=== PATIENT | female | born 1930 | race Caucasian/White ===

== ENCOUNTER 2017-10-05 10:46 | Emergency (ER) | payer MEDICARE ==
[~2017-10-05] VITALS: Ht 162.6 cm; Wt 95.5 kg
[~2017-10-05 10:46] MED LIST: AMOX1TAB61 PO; ASPI325T17 PO; CEFD300C37 PO; CYAN500L2 PO; DOCU-131 PO; FURO20TA3 PO; HYDR-3237 PO; HYPR10DR EACHEYE; INSU100I13 SQ; INSU100I13 SQ-INSULIN; LEVO50TA5 PO; LISI40TA PO; LOVA40TA2 PO; METF10002 PO; NITR100C PO; NITR50CA PO; ONDA4TAB10 PO; VITA1TAB61 PO
[2017-10-05] MEDS ORDERED: DIAZEPAM 5 MG TABLET PO ONE (11:30)
[2017-10-05] MEDS ORDERED: KETOROLAC 30 MG/1 ML IM ONE (11:30)
[2017-10-05] MEDS ORDERED: DIAZEPAM 5 MG TABLET ONE (11:33)
[2017-10-05] MEDS ORDERED: KETOROLAC 30 MG/1 ML ONE (11:33)
[2017-10-05 15:06] VITALS: BP 156/66
== END 2017-10-05 15:10 | disposition home or self-care (01) ==
LOC: ED 11:43
DX: S16.1XXA Strain of muscle, fascia and tendon at neck level, initial encounter (principal); S39.012A Strain of muscle, fascia and tendon of lower back, initial encounter; M48.061 Spinal stenosis, lumbar region without neurogenic claudication; E05.90 Thyrotoxicosis, unspecified without thyrotoxic crisis or storm; E04.1 Nontoxic single thyroid nodule; E11.9 Type 2 diabetes mellitus without complications; E78.5 Hyperlipidemia, unspecified; I10 Essential (primary) hypertension; Z79.4 Long term (current) use of insulin; Z90.49 Acquired absence of other specified parts of digestive tract; X58.XXXA Exposure to other specified factors, initial encounter; Y93.89 Activity, other specified; Y92.89 Other specified places as the place of occurrence of the external cause; Y99.8 Other external cause status
CPT/HCPCS: 72125; 72131; 93005; 96372; 99284; J1885

== ENCOUNTER 2018-12-12 11:04 | Inpatient (IN) | payer MEDICARE ==
[~2018-12-12] VITALS: Ht 165.1 cm; Wt 89.5 kg
[~2018-12-12 11:04] MED LIST changes: +AMIO400T5 PO; +AMOX-367 PO; +APIX5TAB PO; +INSU100V8 SQ; +LEVO25TA2 PO; +LEVO50TA PO; +fish oil PO
[2018-12-12] MEDS ORDERED: ONDANSETRON 2MG/ML, 2ML ONE (11:48)
[2018-12-12 11:58] LABS: BASOPHILS # (AUTO) 0.01 x10^3/uL (0-0.1); BASOPHILS % (AUTO) 0 % (0-1); EOSINOPHILS # (AUTO) 0.27 x10^3/uL (0-0.4); EOSINOPHILS % (AUTO) 2 % (1-7); LYMPHOCYTES # (AUTO) 0.83 x10^3/uL (1-3.4); LYMPHOCYTES % (AUTO) 7 % (22-44); MD NO; MEAN CORPUSCULAR HEMOGLOBIN 29.3 pg (27.0-34.8); MEAN CORPUSCULAR HGB CONC 33.4 g/dL (32.4-35.8); MEAN CORPUSCULAR VOLUME 87.7 fL (80-100); MEAN PLATELET VOLUME 8.9 fL (7.4-10.4); MONOCYTES # (AUTO) 0.54 x10^3/uL (0.2-0.8); MONOCYTES % (AUTO) 5 % (2-9); NEUTROPHILS # (AUTO) 10.16 x10^3/uL (1.8-6.8); NEUTROPHILS % (AUTO) 86 % (42-75); PLATELET COUNT 222 x10^3/uL (130-400); RED BLOOD COUNT 4.87 x10^6/uL (3.82-5.3); RED CELL DISTRIBUTION WIDTH 15.5 % (9.6-15.2)
--- NOTE | 2018-12-12 11:58 | NUR ---
PT PLACED ON HEART MONITOR, BP CUFF, PULSE OX. VSS AT THIS TIME. PT REPORTS OF N/V/D SINCE YESTERDAY. FEELS NAUSEA AND LIGHTHEADED/WEAK AT THIS TIME. NO DIARRHEA TODAY. PT REPORTS RECENT ANTIBIOTIC USE FOR "VAGINAL INFECTION". IV PLACED, LABS DRAWN WITH START, IVF BOLUS AND ZOFRAN GIVEN PER ERP ORDER. PT TO IMAGING. FAMILY AT BS, CALL LIGHT WITHIN REACH, WARM BLANKET PROVIDED. PT WISHES TO STAY IN OWN [place] AND [place].
[2018-12-12] MEDS ORDERED: ONDANSETRON 2MG/ML, 2ML IVPush ONE (12:00)
[2018-12-12] MEDS ORDERED: SODIUM CHLORIDE 0.9% 1,000ML IVBOLUS ONE (12:00)
[2018-12-12] MEDS ORDERED: SODIUM CHLORIDE FLUSH 10ML SYR IVF ONE (12:00)
[2018-12-12 12:14] LABS: ALANINE AMINOTRANSFERASE 26 U/L (12-78); ALBUMIN 3.1 g/dL (3.4-5.0); ANION GAP 9 mmol/L (5-15); CALCIUM 8.9 mg/dL (8.5-10.1); CHLORIDE 102 mmol/L (98-107); CREATININE 1.31 mg/dL (0.55-1.02)
[2018-12-12 12:19] LABS: ALKALINE PHOSPHATASE 73 U/L (45-117); BILIRUBIN,TOTAL 1.1 mg/dL (0.2-1.0); TOTAL PROTEIN 6.3 g/dL (6.4-8.2)
[2018-12-12 12:22] LABS: TROPONIN I 0.119 ng/mL (0.000-0.045)
[2018-12-12 12:25] LABS: ACETONE, SERUM Trace (10mg/dL) mg/dL (Negative)
[2018-12-12] MEDS ORDERED: ASPIRIN 81 MG TABLET CHEW ONE (12:51)
--- NOTE | 2018-12-12 12:54 | NUR ---
PT DESAT TO 80% WHILE ASLEEP, OXYGEN PLACED AT 3LITERS VIA NC WITH IMPROVEMENT TO 100% WHILE AWAKE. PT UPDATED ON POC, ASPIRIN GIVEN PO PER ERP ORDER. PT DENIES PAIN OR NAUSEA AT THIS TIME. VSS/UPDATED IN COMPUTER. BSC COMMODE IN PLACE WITH HAT, PT AWARE OF NEED FOR UA AND STOOL SPECIMEN. PT STATES UNABLE TO PROVIDE AT THIS TIME. CALL LIGHT WITHIN REACH.
[2018-12-12] MEDS ORDERED: ASPIRIN 81 MG TABLET CHEW PO ONE (13:00)
[2018-12-12] MEDS ORDERED: EMPA10TA PO (13:14)
[2018-12-12] MEDS ORDERED: NITR100C6 PO (13:14)
[2018-12-12] MEDS ORDERED: AMIO100T4 PO (13:14)
--- NOTE | 2018-12-12 13:22 | NUR ---
SMALL AMOUNT OF YELLOW MUCOUS STOOL SENT TO LAB. MODERATE AMOUNT IN COMMODE BUT MAJORITY MIXED WITH URINE MAKING UNABLE TO SEND UA. ADMITTING FOR DR DEWITT IN TO SEE PT.
--- NOTE | 2018-12-12 13:36 | NUR ---
REPORT GIVEN TO FLOOR RN. AWAITING TRANSPORT TO FLOOR.
[2018-12-12] MEDS ORDERED: ACETAMINOPHEN 325 MG TABLET PO PRN (14:00)
[2018-12-12] MEDS ORDERED: PROMETHAZINE 25 MG/ML, 1ML IM PRN (14:00)
[2018-12-12] MEDS ORDERED: ONDANSETRON ODT 4 MG PO PRN (14:00)
[2018-12-12] MEDS ORDERED: ONDANSETRON 2MG/ML, 2ML IVPush PRN (14:00)
[2018-12-12] MEDS ORDERED: hydrALAzine 20 MG/ML, 1ML IVPush PRN (14:00)
[2018-12-12 14:07] LABS: CLOSTRIDIUM DIFFICILE ANTIGEN NEGATIVE; CLOSTRIDIUM DIFFICILE TOXIN NEGATIVE (Negative)
[2018-12-12] MEDS ORDERED: FOSFOMYCIN 3 GM PACKET PO ONE (14:30)
[2018-12-12] MEDS: SODIUM CHLORIDE 0.9% 1,000 ML IV SCH (15:12)
[2018-12-12] MEDS: INSULIN REGULAR 100 UNITS/ML, 3ML VIAL SQ-INSULIN SCH ×2 (16:00→23:15)
[2018-12-12 18:04] LABS: TROPONIN I 0.086 ng/mL (0.000-0.045)
[2018-12-12 19:40] VITALS: BP 132/62
[2018-12-12 20:07] LABS: MICROSCOPIC AUTO
[2018-12-12 20:10] LABS: CULTURE INDICATED? YES
[2018-12-12] MEDS: LOVASTATIN 40 MG TABLET PO SCH (22:41)
[2018-12-12] MEDS: APIXABAN 5 MG TABLET PO SCH (22:41)
[2018-12-13 01:05] VITALS: BP 111/56
[2018-12-13 02:26] LABS: BASOPHILS # (AUTO) 0.02 x10^3/uL (0-0.1); BASOPHILS % (AUTO) 0 % (0-1); EOSINOPHILS # (AUTO) 0.31 x10^3/uL (0-0.4); EOSINOPHILS % (AUTO) 3 % (1-7); LYMPHOCYTES # (AUTO) 0.64 x10^3/uL (1-3.4); LYMPHOCYTES % (AUTO) 7 % (22-44); MD NO; MEAN CORPUSCULAR HGB CONC 33.2 g/dL (32.4-35.8); MEAN CORPUSCULAR VOLUME 87.4 fL (80-100); MEAN PLATELET VOLUME 8.7 fL (7.4-10.4); MONOCYTES # (AUTO) 0.51 x10^3/uL (0.2-0.8); MONOCYTES % (AUTO) 5 % (2-9); NEUTROPHILS # (AUTO) 8.19 x10^3/uL (1.8-6.8); NEUTROPHILS % (AUTO) 85 % (42-75); PLATELET COUNT 197 x10^3/uL (130-400); RED BLOOD COUNT 3.74 x10^6/uL (3.82-5.3); RED CELL DISTRIBUTION WIDTH 15.9 % (9.6-15.2)
[2018-12-13 02:38] LABS: ANION GAP 7 mmol/L (5-15); CALCIUM 7.5 mg/dL (8.5-10.1); CHLORIDE 109 mmol/L (98-107)
[2018-12-13] MEDS: SODIUM CHLORIDE 0.9% 1,000 ML IV SCH ×4 (02:42→20:51)
[2018-12-13 02:43] LABS: TROPONIN I 0.112 ng/mL (0.000-0.045)
[2018-12-13] MEDS: LEVOTHYROXINE 75 MCG TABLET PO SCH (05:35)
[2018-12-13] MEDS ORDERED: POTASSIUM CHLORIDE 20 MEQ TAB.ER.PRT PO ONE (06:30)
[2018-12-13] MEDS ORDERED: MAGNESIUM CARBONATE 54 MG/5 ML ORAL SOL PO ONE (06:30)
[2018-12-13 07:13] VITALS: BP 107/62
[2018-12-13 07:29] LABS: TROPONIN I 0.115 ng/mL (0.000-0.045)
[2018-12-13] MEDS: INSULIN REGULAR 100 UNITS/ML, 3ML VIAL SQ-INSULIN SCH ×4 (08:48→20:50)
[2018-12-13] MEDS: LISINOPRIL 20 MG TABLET PO SCH (08:49)
[2018-12-13] MEDS: APIXABAN 5 MG TABLET PO SCH ×2 (08:49→20:50)
[2018-12-13] MEDS: CALCIUM CARBONATE 500 MG TABLET PO SCH ×2 (08:50→20:50)
[2018-12-13] MEDS: AMIODARONE 200 MG TABLET PO SCH (08:50)
[2018-12-13 12:46] VITALS: BP 105/61
[2018-12-13] MEDS ORDERED: SODIUM CHLORIDE 0.9% 1,000 ML IV SCH (13:44)
[2018-12-13 20:05] VITALS: BP 145/68
[2018-12-13] MEDS: LOVASTATIN 40 MG TABLET PO SCH (20:50)
[2018-12-14 00:50] VITALS: BP 153/80
[2018-12-14 04:55] LABS: ANION GAP 6 mmol/L (5-15); CALCIUM 7.7 mg/dL (8.5-10.1); CHLORIDE 114 mmol/L (98-107); CREATININE 1.13 mg/dL (0.55-1.02)
[2018-12-14] MEDS: LEVOTHYROXINE 75 MCG TABLET PO SCH (05:22)
[2018-12-14] MEDS: SODIUM CHLORIDE 0.9% 1,000 ML IV SCH (05:23)
[2018-12-14 07:38] VITALS: BP 164/73
[2018-12-14] MEDS: APIXABAN 5 MG TABLET PO SCH (08:54)
[2018-12-14] MEDS: CALCIUM CARBONATE 500 MG TABLET PO SCH (08:55)
[2018-12-14] MEDS: LISINOPRIL 20 MG TABLET PO SCH (08:55)
[2018-12-14] MEDS: AMIODARONE 200 MG TABLET PO SCH (08:56)
[2018-12-14] MEDS: INSULIN REGULAR 100 UNITS/ML, 3ML VIAL SQ-INSULIN SCH ×2 (08:56→11:21)
[2018-12-14 13:19] VITALS: BP 173/79
[2018-12-14] MEDS ORDERED: AMOXICILLIN/CLAV 875-125MG TABLET PO SCH (13:30)
[2018-12-14] MEDS ORDERED: FLUCONAZOLE 100 MG TABLET PO ONE (13:30)
[2018-12-14] MEDS ORDERED: NYSTATIN CRM 15GM TP PRN (13:30)
[2018-12-14] MEDS ORDERED: NYST15CR33 TP (13:34)
[2018-12-14] MEDS ORDERED: AMOX1TAB12 PO (13:34)
[2018-12-14] MEDS ORDERED: FLUCONAZOLE 50 MG TABLET PO ONE (14:00)
== END 2018-12-14 16:35 | disposition home or self-care (01) | DRG 280 ==
LOC: ED 13:00 → EDIP 13:47 → 5SO 13:52 → DCLOUNGE 12-14 16:20
PROVIDERS: ADMIT Family Medicine; ATTEND Family Medicine
DX: I21.4 Non-ST elevation (NSTEMI) myocardial infarction (principal); N17.0 Acute kidney failure with tubular necrosis; I51.81 Takotsubo syndrome; N39.0 Urinary tract infection, site not specified; A08.4 Viral intestinal infection, unspecified; I48.0 Paroxysmal atrial fibrillation; I10 Essential (primary) hypertension; B37.3 Candidiasis of vulva and vagina; B96.20 Unspecified Escherichia coli [E. coli] as the cause of diseases classified elsewhere; B96.1 Klebsiella pneumoniae [K. pneumoniae] as the cause of diseases classified elsewhere; I95.9 Hypotension, unspecified; E78.5 Hyperlipidemia, unspecified; E11.9 Type 2 diabetes mellitus without complications; E86.0 Dehydration; Z82.49 Family history of ischemic heart disease and other diseases of the circulatory system; Z87.01 Personal history of pneumonia (recurrent); Z79.01 Long term (current) use of anticoagulants; Z80.8 Family history of malignant neoplasm of other organs or systems; Z85.820 Personal history of malignant melanoma of skin; Z86.73 Personal history of transient ischemic attack (TIA), and cerebral infarction without residual deficits; Z87.891 Personal history of nicotine dependence
CPT/HCPCS: 36415; 74022; 80048; 80053; 81001; 82010; 82800; 82962; 83735; 84443; 84484; 85025; 87086; 87324; 89055; 93005; 93306; 96361; 96374; 99285; G0378; J1815; J2405; J7030

== ENCOUNTER 2019-01-27 13:03 | Emergency (ER) | payer MEDICARE ==
[~2019-01-27 13:03] MED LIST changes: +AMIO100T4 PO; +AMOX1TAB12 PO; +EMPA10TA PO; +NITR100C6 PO; +NYST15CR33 TP
[2019-01-27 14:00] LABS: BASOPHILS # (AUTO) 0.04 x10^3/uL (0-0.1); BASOPHILS % (AUTO) 0 % (0-1); EOSINOPHILS # (AUTO) 0.11 x10^3/uL (0-0.4); EOSINOPHILS % (AUTO) 1 % (1-7); LYMPHOCYTES # (AUTO) 1.33 x10^3/uL (1-3.4); LYMPHOCYTES % (AUTO) 15 % (22-44); MD NO; MEAN CORPUSCULAR HEMOGLOBIN 28.6 pg (27.0-34.8); MEAN CORPUSCULAR HGB CONC 33.4 g/dL (32.4-35.8); MEAN CORPUSCULAR VOLUME 85.7 fL (80-100); MEAN PLATELET VOLUME 9.7 fL (7.4-10.4); MONOCYTES # (AUTO) 0.45 x10^3/uL (0.2-0.8); MONOCYTES % (AUTO) 5 % (2-9); NEUTROPHILS % (AUTO) 79 % (42-75); PLATELET COUNT 314 x10^3/uL (130-400); RED BLOOD COUNT 4.79 x10^6/uL (3.82-5.3); RED CELL DISTRIBUTION WIDTH 16.8 % (9.6-15.2)
[2019-01-27 14:08] LABS: CHLORIDE 102 mmol/L (98-107)
[2019-01-27 14:21] LABS: ALANINE AMINOTRANSFERASE 37 U/L (12-78); ALBUMIN 3.1 g/dL (3.4-5.0); ALKALINE PHOSPHATASE 93 U/L (45-117); ANION GAP 8 mmol/L (5-15); BILIRUBIN,TOTAL 0.7 mg/dL (0.2-1.0); CALCIUM 8.4 mg/dL (8.5-10.1); CREATININE 1.65 mg/dL (0.55-1.02); TOTAL PROTEIN 6.2 g/dL (6.4-8.2); TROPONIN I < 0.015 ng/mL (0.000-0.045)
--- NOTE | 2019-01-27 16:22 | NUR ---
NEWS DEPARTMENT INTERN: TO ROOM FROM LOBBY VIA W/C
--- NOTE | 2019-01-27 16:39 | NUR ---
PT. IS A & O X 4 WITH C/O NAUSEA, VOMITING AND RECENT UTI. PT. IS RESTING ON THE STRETCHER WITHOUT CONCERNS. PT.'S HOB IS ELEVATED. PT. IS PINK,WARM AND DRY. NO ACTIVE VOMITING AT THIS TIME. PT. STATES SHE IS WARM. SIDERAILS ARE UP X 2 WITH THE CALL LIGHT IN PLACE.
--- NOTE | 2019-01-27 18:10 | NUR ---
PT. AND FAMILY WERE GIVEN DISCHARGE INSTRUCTIONS AND SCRIPTS WITH UNDERSTANDING VERBALIZED ALONG WITH WILLINGNESS TO COMPLY. PT. WAS ASSISTED TO THE DISCHARGE DESK BY WHEELCHAIR WITH HER FAMILY.
[2019-01-27 18:11] VITALS: BP 125/75
== END 2019-01-27 18:14 | disposition home or self-care (01) ==
LOC: ED 17:41
DX: R11.2 Nausea with vomiting, unspecified (principal); E86.0 Dehydration; E11.9 Type 2 diabetes mellitus without complications
CPT/HCPCS: 36415; 71046; 80053; 84484; 85025; 93005; 99284

== ENCOUNTER 2019-06-26 12:56 | Inpatient (IN) | payer MEDICARE ==
[~2019-06-26] VITALS: Ht 165.1 cm; Wt 76.5 kg
[2019-06-30 13:38] VITALS: BP 167/89
== END 2019-06-30 14:05 | disposition home health service (06) | DRG 309 ==
LOC: ED 13:59 → INTOOBSV 14:35 → EDIP 14:35 → OBSVTOIN 15:56 → 4EST 17:04 → DCLOUNGE 06-30 14:00
PROVIDERS: ADMIT Family Medicine; ATTEND Family Medicine
DX: R00.1 Bradycardia, unspecified (principal); N39.0 Urinary tract infection, site not specified; D68.59 Other primary thrombophilia; I48.0 Paroxysmal atrial fibrillation; E78.5 Hyperlipidemia, unspecified; B96.89 Other specified bacterial agents as the cause of diseases classified elsewhere; E03.9 Hypothyroidism, unspecified; E11.9 Type 2 diabetes mellitus without complications; G47.00 Insomnia, unspecified; R06.01 Orthopnea; I10 Essential (primary) hypertension; I27.20 Pulmonary hypertension, unspecified; Z96.641 Presence of right artificial hip joint; Z80.8 Family history of malignant neoplasm of other organs or systems; Z82.49 Family history of ischemic heart disease and other diseases of the circulatory system; Z86.73 Personal history of transient ischemic attack (TIA), and cerebral infarction without residual deficits; Z79.01 Long term (current) use of anticoagulants
CPT/HCPCS: 36415; 71045; 80048; 81001; 82040; 82962; 83036; 83880; 84439; 84443; 84481; 84484; 85025; 87077; 87086; 87186; 93005; 93306; 96374; 99285; G0378; J2405; Q0162; J1815

== ENCOUNTER 2020-04-11 08:46 | Inpatient (IN) | payer MEDICARE ==
[~2020-04-11] VITALS: Ht 170.2 cm; Wt 76.7 kg
[~2020-04-11 08:46] MED LIST changes: +ASPI-496 PO; +CEPH-368 PO; +DIGO125T85 PO; +HYDR-3341 PO; +HYDR12.517 PO; +LABE100T6 PO; +METO50TA82 PO; +NYST15CR TP; -NYST15CR33 TP; +POTA20PA25 PO
--- NOTE | 2020-04-11 09:21 | NUR ---
TASK RN: DR GUTIERREZ AT BEDSIDE. PT ASSESSENT REVIEWED AND ORDERS REC'D.
[2020-04-11 09:24] LABS: BASOPHILS # (AUTO) 0.03 x10^3/uL (0-0.1); BASOPHILS % (AUTO) 0 % (0-1); EOSINOPHILS # (AUTO) 0.08 x10^3/uL (0-0.4); EOSINOPHILS % (AUTO) 1 % (1-7); LYMPHOCYTES # (AUTO) 2.63 x10^3/uL (1-3.4); LYMPHOCYTES % (AUTO) 30 % (22-44); MD NO; MEAN CORPUSCULAR HEMOGLOBIN 28.7 pg (27.0-34.8); MEAN CORPUSCULAR HGB CONC 32.7 g/dL (32.4-35.8); MEAN CORPUSCULAR VOLUME 87.9 fL (80-100); MEAN PLATELET VOLUME 8.6 fL (7.4-10.4); MONOCYTES # (AUTO) 0.72 x10^3/uL (0.2-0.8); MONOCYTES % (AUTO) 8 % (2-9); NEUTROPHILS # (AUTO) 5.27 x10^3/uL (1.8-6.8); NEUTROPHILS % (AUTO) 60 % (42-75); PLATELET COUNT 333 x10^3/uL (130-400); RED BLOOD COUNT 4.19 x10^6/uL (3.82-5.3); RED CELL DISTRIBUTION WIDTH 16.1 % (9.6-15.2)
[2020-04-11 09:37] LABS: MICROSCOPIC AUTO
[2020-04-11 10:32] LABS: ALBUMIN 3.1 g/dL (3.4-5.0); ANION GAP 7 mmol/L (5-15); CALCIUM 8.8 mg/dL (8.5-10.1); CHLORIDE 108 mmol/L (98-107)
[2020-04-11 10:44] LABS: ALANINE AMINOTRANSFERASE 15 U/L (12-78); ALKALINE PHOSPHATASE 71 U/L (45-117); BILIRUBIN,TOTAL 0.8 mg/dL (0.2-1.0); CREATININE 1.24 mg/dL (0.55-1.02); TOTAL PROTEIN 5.9 g/dL (6.4-8.2); TROPONIN I < 0.015 ng/mL (0.000-0.045)
[2020-04-11] MEDS ORDERED: CEFTRIAXONE PMX 1GM/50ML 50 ML IVPB ONE (11:00)
[2020-04-11] MEDS ORDERED: CEFTRIAXONE PMX 1GM/50ML 50 ML ONE (11:15)
[2020-04-11] MEDS ORDERED: LABETALOL 5MG/ML, 20ML ONE (11:15)
[2020-04-11] MEDS ORDERED: ONDANSETRON 2MG/ML, 2ML ONE ×2 (11:15→12:11)
[2020-04-11] MEDS: LABETALOL 5MG/ML, 20ML IVPush PRN ×2 (11:27→11:47)
[2020-04-11] MEDS ORDERED: ONDANSETRON 2MG/ML, 2ML IVPush ONE ×2 (11:30)
[2020-04-11] MEDS ORDERED: PROCHLORPERAZINE 5 MG/ML, 2ML ONE (12:13)
[2020-04-11] MEDS ORDERED: PROCHLORPERAZINE 5 MG/ML, 2ML IVPush ONE (12:30)
[2020-04-11] MEDS ORDERED: DILTIAZEM 5 MG/ML, 5ML IVPush ONE (12:30)
[2020-04-11] MEDS ORDERED: DIGOXIN 0.25 MG/ML, 2ML ONE (12:31)
[2020-04-11] MEDS ORDERED: DILTIAZEM 5 MG/ML, 5ML ONE (12:31)
[2020-04-11] MEDS ORDERED: DIGO125T85 PO (12:39)
[2020-04-11] MEDS ORDERED: METO100T7 PO (12:39)
--- NOTE | 2020-04-11 12:50 | NUR ---
PT MEDICATED WITH DIGOXIN AND 10MG IVP CARDIZEM. HEART RATE IMPROVED AND BELOW 100 NOW.
[2020-04-11] MEDS ORDERED: DIGOXIN 0.25 MG/ML, 2ML IVPush ONE (13:00)
--- NOTE | 2020-04-11 13:06 | NUR ---
RECEIVED REPORT FROM WILLIAM HASSAN, ASSUMING CARE OF PT
--- NOTE | 2020-04-11 13:25 | NUR ---
DISCUSSION WITH DR GUTIERREZ REGARDING IF PT SHOULD BE CONSIDERED FOR COVID R/O UNIT D/T FEVER, LOW SATS AND ALTERED BEHAVIOR. STS SYMPTOMS MOST LIKELY D/T UROSEPSIS. COVID R/O UNNECESSARY AT THIS TIME
[2020-04-11] MEDS ORDERED: DEXTROSE 4 GM TAB.CHEW PO PRN (13:30)
[2020-04-11] MEDS ORDERED: DEXTROSE 50%, 50ML SYRINGE IVPush PRN (13:30)
[2020-04-11] MEDS ORDERED: hydrALAzine 20 MG/ML, 1ML IVPush PRN (13:30)
[2020-04-11] MEDS ORDERED: DOCUSATE 100 MG CAPSULE PO PRN (13:30)
[2020-04-11] MEDS ORDERED: NITROGLYCERIN 0.4 MG BOTTLE (25 TABS) SL PRN (13:30)
[2020-04-11] MEDS ORDERED: ASPIRIN 81 MG TABLET CHEW PO ONE (13:30)
[2020-04-11] MEDS ORDERED: GLUCAGON 1 MG IM PRN (13:30)
[2020-04-11] MEDS ORDERED: NITROGLYCERIN 0.4 MG/SPRAY SL PRN (13:30)
--- NOTE | 2020-04-11 13:33 | NUR ---
LAB AT BEDSIDE
--- NOTE | 2020-04-11 13:48 | NUR ---
DISCUSSION WITH R/O SEPSIS, MD KNIGHT NO FLUIDS AT THIS TIME D/T PT ELEVATED BP. PT HAS RECEIVED ABX. HOLDING ASA AT THIS TIME D/T PT VOMITING, CURRENTLY TAKING [facility]. STS TOOK [employer]. SON AT BEDSIDE. CALL LIGHT WITHIN REACH. AWAITING ROOM ASSIGNMENT AT THIS TIME
[2020-04-11 14:28] LABS: TROPONIN I < 0.015 ng/mL (0.000-0.045)
--- NOTE | 2020-04-11 15:55 | NUR ---
ADDITIONAL LINE PLACED FOR CTA. PT SEEMING CONFUSED, NOT FOLLOWING DIRECTIONS AT THIS TIME. AWAITING CALL BACK FROM [facility]
[2020-04-11] MEDS ORDERED: OMNIPAQUE 350 MG/ML, 100ML BOTTLE ONE (16:17)
--- NOTE | 2020-04-11 16:26 | NUR ---
PT BACK FROM CT, TECH STS PT VOMITED WHILE THERE. UPON ARRIVING BACK TO ER PT CLEANED UP, LINENS CHANGED. RECTAL TEMP TAKEN SHOWING 102, URN TO BE UPDATED FOR TYLENOL.
--- NOTE | 2020-04-11 16:28 | NUR ---
SPoke with [facility] med about bp. Telephone order for more frequent vitals. Dr. Beyer gave order.
--- NOTE | 2020-04-11 16:30 | NUR ---
CALL PLACED TO [facility], AWAITING CALL BACK AND ORDERS
[2020-04-11] MEDS ORDERED: ACETAMINOPHEN 650 MG SUPP ONE (16:33)
--- NOTE | 2020-04-11 16:35 | NUR ---
VERBAL ORDER RECEIVED FROM DR. CLIFTON WITH [facility] FOR 650MG RECTAL TYLENOL TO BE GIVEN NOW. PT MEDICATED ACCORDINGLY. WILL CONTINUE TO MONITOR
[2020-04-11] MEDS ORDERED: ACETAMINOPHEN 650 MG SUPP PR PRN (17:00)
--- NOTE | 2020-04-11 17:59 | NUR ---
COVID SWAB COLLECTED. PT TEMP RECHECKED AFTER TYLENOL, NO IMPROVEMENT. URN TO BE CONTACTED.
--- NOTE | 2020-04-11 18:14 | NUR ---
REPORT GIVEN TO JOSE RN, PT READY FOR TRANSPORT TO FLOOR. PT CLEANED UP, INCONT OF URINE. PURWIK PLACED.
[2020-04-11] MEDS ORDERED: MAGNESIUM SULFATE PMX 4GM/100M 100 ML IV ONE (18:30)
[2020-04-11] MEDS: INSULIN LISPRO 100 UNITS/ML, PEN SQ-INSULIN SCH ×2 (18:38→21:37)
[2020-04-11 18:50] VITALS: BP 152/62
[2020-04-11 19:39] VITALS: BP 148/60
[2020-04-11 19:53] LABS: TROPONIN I 0.047 ng/mL (0.000-0.045)
[2020-04-11] MEDS: HEPARIN 5,000 UNITS/ML, 1ML SQ SCH (21:08)
[2020-04-11] MEDS: SODIUM CHLORIDE FLUSH 10ML SYR IVF SCH (21:37)
[2020-04-11] MEDS: PIPERACILLIN/TAZO/PMX 3.375GM 50 ML IV SCH (21:37)
[2020-04-12 00:56] VITALS: BP 102/36
[2020-04-12] MEDS: PIPERACILLIN/TAZO/PMX 3.375GM 50 ML IV SCH ×2 (03:18→08:55)
[2020-04-12 04:06] VITALS: BP 111/48
[2020-04-12] MEDS ORDERED: LACTATED RINGERS 1,000 ML IV SCH (04:30)
[2020-04-12] MEDS: LACTATED RINGERS 1,000 ML IV SCH (04:37)
[2020-04-12] MEDS: HEPARIN 5,000 UNITS/ML, 1ML SQ SCH (05:09)
[2020-04-12 06:25] LABS: BASOPHILS # (AUTO) 0.09 x10^3/uL (0-0.1); BASOPHILS % (AUTO) 1 % (0-1); EOSINOPHILS # (AUTO) 0.08 x10^3/uL (0-0.4); EOSINOPHILS % (AUTO) 1 % (1-7); LYMPHOCYTES # (AUTO) 1.22 x10^3/uL (1-3.4); LYMPHOCYTES % (AUTO) 17 % (22-44); MD NO; MEAN CORPUSCULAR HEMOGLOBIN 28.9 pg (27.0-34.8); MEAN CORPUSCULAR HGB CONC 32.8 g/dL (32.4-35.8); MEAN CORPUSCULAR VOLUME 88.2 fL (80-100); MEAN PLATELET VOLUME 8.9 fL (7.4-10.4); MONOCYTES # (AUTO) 0.77 x10^3/uL (0.2-0.8); MONOCYTES % (AUTO) 11 % (2-9); NEUTROPHILS # (AUTO) 5.08 x10^3/uL (1.8-6.8); NEUTROPHILS % (AUTO) 70 % (42-75); PLATELET COUNT 291 x10^3/uL (130-400); RED CELL DISTRIBUTION WIDTH 15.9 % (9.6-15.2)
[2020-04-12 06:38] LABS: ANION GAP 9 mmol/L (5-15); CALCIUM 8.7 mg/dL (8.5-10.1); CHLORIDE 106 mmol/L (98-107)
[2020-04-12 06:44] LABS: CREATININE 1.28 mg/dL (0.55-1.02); TROPONIN I 0.088 ng/mL (0.000-0.045)
[2020-04-12] MEDS ORDERED: POTASSIUM CHLORIDE 20 MEQ TAB.ER.PRT PO ONE (07:00)
[2020-04-12 07:33] VITALS: BP 110/47
[2020-04-12] MEDS: INSULIN LISPRO 100 UNITS/ML, PEN SQ-INSULIN SCH ×4 (08:54→21:16)
[2020-04-12] MEDS: SODIUM CHLORIDE FLUSH 10ML SYR IVF SCH ×2 (08:55→21:16)
[2020-04-12] MEDS ORDERED: APIXABAN 2.5 MG TABLET PO SCH (09:00)
[2020-04-12] MEDS: ACETAMINOPHEN 325 MG TABLET PO PRN (11:20)
[2020-04-12] MEDS: CEFTRIAXONE PMX 1GM/50ML 50 ML IV SCH (11:20)
[2020-04-12 13:56] VITALS: BP 103/53
[2020-04-12 20:32] VITALS: BP 122/53
[2020-04-12] MEDS ORDERED: INSULIN GLARGINE 100 UNITS/ML, PEN SQ-INSULIN SCH (21:00)
[2020-04-12] MEDS: ATORVASTATIN 10 MG TABLET PO SCH (21:15)
[2020-04-12] MEDS: APIXABAN 5 MG TABLET PO SCH (21:15)
[2020-04-13] MEDS: LACTATED RINGERS 1,000 ML IV SCH ×2 (00:13→21:56)
[2020-04-13] MEDS: ACETAMINOPHEN 325 MG TABLET PO PRN ×2 (00:16→10:35)
[2020-04-13 00:48] VITALS: BP 129/69
[2020-04-13 06:18] LABS: ANION GAP 8 mmol/L (5-15); CALCIUM 8.3 mg/dL (8.5-10.1); CHLORIDE 107 mmol/L (98-107); CREATININE 1.12 mg/dL (0.55-1.02)
[2020-04-13] MEDS: LEVOTHYROXINE 75 MCG TABLET PO SCH (06:20)
[2020-04-13] MEDS: INSULIN LISPRO 100 UNITS/ML, PEN SQ-INSULIN SCH ×4 (07:00→20:16)
[2020-04-13] MEDS: SODIUM CHLORIDE FLUSH 10ML SYR IVF SCH ×2 (08:04→20:17)
[2020-04-13] MEDS: APIXABAN 5 MG TABLET PO SCH ×2 (08:04→20:17)
[2020-04-13 10:24] VITALS: BP 129/63
[2020-04-13] MEDS: CEFTRIAXONE PMX 1GM/50ML 50 ML IV SCH (10:35)
[2020-04-13] MEDS ORDERED: METOPROLOL TARTRATE 25 MG TAB PO SCH (12:00)
[2020-04-13 12:20] VITALS: BP 119/66
[2020-04-13] MEDS ORDERED: POTASSIUM CHLORIDE 20 MEQ TAB.ER.PRT PO ONE (16:30)
[2020-04-13] MEDS: METOPROLOL TARTRATE 25 MG TAB PO SCH (17:03)
[2020-04-13 19:15] VITALS: BP 138/60
[2020-04-13] MEDS: ATORVASTATIN 10 MG TABLET PO SCH (20:17)
[2020-04-13] MEDS ORDERED: INSULIN GLARGINE 100 UNITS/ML, PEN SQ-INSULIN SCH (21:00)
[2020-04-14 00:46] VITALS: BP 147/70
[2020-04-14 04:09] LABS: BASOPHILS # (AUTO) 0.05 x10^3/uL (0-0.1); BASOPHILS % (AUTO) 1 % (0-1); EOSINOPHILS # (AUTO) 0.19 x10^3/uL (0-0.4); EOSINOPHILS % (AUTO) 3 % (1-7); LYMPHOCYTES # (AUTO) 1.52 x10^3/uL (1-3.4); LYMPHOCYTES % (AUTO) 26 % (22-44); MD NO; MEAN CORPUSCULAR HEMOGLOBIN 28.7 pg (27.0-34.8); MEAN CORPUSCULAR HGB CONC 32.6 g/dL (32.4-35.8); MEAN CORPUSCULAR VOLUME 88.1 fL (80-100); MEAN PLATELET VOLUME 8.9 fL (7.4-10.4); MONOCYTES # (AUTO) 0.59 x10^3/uL (0.2-0.8); MONOCYTES % (AUTO) 10 % (2-9); NEUTROPHILS # (AUTO) 3.61 x10^3/uL (1.8-6.8); NEUTROPHILS % (AUTO) 61 % (42-75); PLATELET COUNT 301 x10^3/uL (130-400); RED BLOOD COUNT 4.03 x10^6/uL (3.82-5.3); RED CELL DISTRIBUTION WIDTH 15.8 % (9.6-15.2)
[2020-04-14 04:19] LABS: ANION GAP 6 mmol/L (5-15); CALCIUM 8.7 mg/dL (8.5-10.1); CHLORIDE 109 mmol/L (98-107); CREATININE 0.97 mg/dL (0.55-1.02)
[2020-04-14] MEDS: LEVOTHYROXINE 75 MCG TABLET PO SCH (06:00)
[2020-04-14] MEDS: METOPROLOL TARTRATE 25 MG TAB PO SCH (06:00)
[2020-04-14 06:28] VITALS: BP 174/90
[2020-04-14] MEDS: INSULIN LISPRO 100 UNITS/ML, PEN SQ-INSULIN SCH ×2 (07:00→11:14)
[2020-04-14 07:27] VITALS: BP 142/75
[2020-04-14 08:01] VITALS: BP 136/75
[2020-04-14] MEDS: SODIUM CHLORIDE FLUSH 10ML SYR IVF SCH (08:21)
[2020-04-14] MEDS: APIXABAN 5 MG TABLET PO SCH (08:21)
[2020-04-14] MEDS ORDERED: DIGOXIN 0.125 MG TABLET PO SCH (09:30)
[2020-04-14] MEDS: CEFTRIAXONE PMX 1GM/50ML 50 ML IV SCH (11:19)
[2020-04-14 13:00] VITALS: BP 156/84
[2020-04-14] MEDS ORDERED: CEFD300C37 PO (13:40)
[2020-04-14] MEDS ORDERED: METOPROLOL TARTRATE 50 MG TAB PO SCH (18:00)
[2020-04-15] MEDS ORDERED: INSULIN GLARGINE 100 UNITS/ML, PEN SQ-INSULIN SCH (09:00)
== END 2020-04-14 17:34 | disposition home or self-care (01) | DRG 871 ==
LOC: ED 09:22 → EDIP 13:11 → 4NE 18:27 → 4EST 04-13 23:21
PROVIDERS: ADMIT Student in an Organized Health Care Education/Training Program; ATTEND Hospitalist
PROC: 0T9B70Z Drainage of Bladder with Drainage Device, Via Natural or Artificial Opening (ICD-10-PCS; principal; 2020-04-12)
DX: A41.9 Sepsis, unspecified organism (principal); G93.41 Metabolic encephalopathy; J96.01 Acute respiratory failure with hypoxia; N17.0 Acute kidney failure with tubular necrosis; I21.A1 Myocardial infarction type 2; I63.9 Cerebral infarction, unspecified; E87.2 Acidosis; D68.69 Other thrombophilia; I50.30 Unspecified diastolic (congestive) heart failure; I48.20 Chronic atrial fibrillation, unspecified; B96.89 Other specified bacterial agents as the cause of diseases classified elsewhere; D64.9 Anemia, unspecified; E03.9 Hypothyroidism, unspecified; E11.9 Type 2 diabetes mellitus without complications; E78.5 Hyperlipidemia, unspecified; E83.42 Hypomagnesemia; E87.6 Hypokalemia; I11.0 Hypertensive heart disease with heart failure; J44.9 Chronic obstructive pulmonary disease, unspecified; Z79.01 Long term (current) use of anticoagulants; Z79.4 Long term (current) use of insulin; Z87.891 Personal history of nicotine dependence; Z96.641 Presence of right artificial hip joint; Z79.82 Long term (current) use of aspirin; Z20.828 Contact with and (suspected) exposure to other viral communicable diseases
CPT/HCPCS: 36415; 70450; 71045; 71275; 80048; 80053; 80162; 81001; 82040; 82962; 83605; 83735; 83880; 84484; 85025; 85379; 85610; 87040; 87077; 87086; 87186; 93005; 96365; 96374; 96375; 99285; 99291; G0378; J0696; J1644; J1940; J2405; J2543; Q9967; J0360; J0780; J1160; J1815; J3475; J7120; U0001-CS

== ENCOUNTER 2020-06-04 15:52 | Emergency (ER) | payer MEDICARE ==
[~2020-06-04] VITALS: Ht 165.1 cm; Wt 90.0 kg
[~2020-06-04 15:52] MED LIST changes: +AMIO200T42 PO; +ASPI81TA45 PO; +CALC1TAB68 PO; +CARV12.52 PO; +FERR-51 PO; +INSU100I11 SQ-INSULIN; +LEVO25TA2 NG; +LISI-170 PO; +METO100T7 PO; +METO25TA35 PO; +POLY17PO5 PO; +SENN176S NG
[2020-06-04 15:53] VITALS: BP 147/62
--- NOTE | 2020-06-04 16:00 | NUR ---
PT BROUGHT BACK TO ED ROOM VIA WHEELCHAIR.
[2020-06-04] MEDS ORDERED: LISI-170 PO (16:45)
[2020-06-04] MEDS ORDERED: FURO20TA3 PO (16:46)
[2020-06-04 16:53] LABS: BASOPHILS # (AUTO) 0.05 x10^3/uL (0-0.1); BASOPHILS % (AUTO) 1 % (0-1); EOSINOPHILS # (AUTO) 0.12 x10^3/uL (0-0.4); EOSINOPHILS % (AUTO) 2 % (1-7); LYMPHOCYTES # (AUTO) 1.52 x10^3/uL (1-3.4); LYMPHOCYTES % (AUTO) 26 % (22-44); MD SCAN; MEAN CORPUSCULAR HEMOGLOBIN 28.9 pg (27.0-34.8); MEAN CORPUSCULAR HGB CONC 32.1 g/dL (32.4-35.8); MEAN CORPUSCULAR VOLUME 90.2 fL (80-100); MEAN PLATELET VOLUME 9.3 fL (7.4-10.4); MONOCYTES # (AUTO) 0.49 x10^3/uL (0.2-0.8); MONOCYTES % (AUTO) 8 % (2-9); NEUTROPHILS # (AUTO) 3.76 x10^3/uL (1.8-6.8); NEUTROPHILS % (AUTO) 63 % (42-75); PLATELET COUNT 288 x10^3/uL (130-400); RED BLOOD COUNT 3.78 x10^6/uL (3.82-5.3); RED CELL DISTRIBUTION WIDTH 20.1 % (9.6-15.2)
[2020-06-04 16:59] LABS: ALBUMIN 2.9 g/dL (3.4-5.0); ANION GAP 6 mmol/L (5-15); CALCIUM 8.6 mg/dL (8.5-10.1); CHLORIDE 110 mmol/L (98-107); CREATININE 1.04 mg/dL (0.55-1.02)
--- NOTE | 2020-06-04 17:03 | NUR ---
Pt states increased SOB over last few days, states being afraid to sleep. Son states that she has periods of apnea. Pt does not appear in acute distress. Family at bedside.
== END 2020-06-04 17:43 | disposition home or self-care (01) ==
LOC: ED 17:35
DX: R06.00 Dyspnea, unspecified (principal); R53.83 Other fatigue; R53.1 Weakness; I48.92 Unspecified atrial flutter; E11.9 Type 2 diabetes mellitus without complications; I11.0 Hypertensive heart disease with heart failure; I50.9 Heart failure, unspecified; I48.91 Unspecified atrial fibrillation; I25.2 Old myocardial infarction; Z86.73 Personal history of transient ischemic attack (TIA), and cerebral infarction without residual deficits
CPT/HCPCS: 36415; 71045; 80048; 82040; 85025; 93005; 99285

== ENCOUNTER 2020-08-03 14:20 | Emergency (ER) | payer MEDICARE ==
[~2020-08-03] VITALS: Ht 162.6 cm; Wt 73.0 kg
[2020-08-03 14:25] VITALS: BP 112/59
[2020-08-03 15:09] LABS: BASOPHILS # (AUTO) 0.05 x10^3/uL (0-0.1); BASOPHILS % (AUTO) 1 % (0-1); EOSINOPHILS # (AUTO) 0.04 x10^3/uL (0-0.4); EOSINOPHILS % (AUTO) 1 % (1-7); LYMPHOCYTES % (AUTO) 22 % (22-44); MD NO; MEAN CORPUSCULAR HEMOGLOBIN 28.1 pg (27.0-34.8); MEAN CORPUSCULAR HGB CONC 31.9 g/dL (32.4-35.8); MEAN CORPUSCULAR VOLUME 88.3 fL (80-100); MEAN PLATELET VOLUME 9.7 fL (7.4-10.4); MONOCYTES # (AUTO) 0.51 x10^3/uL (0.2-0.8); MONOCYTES % (AUTO) 7 % (2-9); NEUTROPHILS % (AUTO) 70 % (42-75); PLATELET COUNT 232 x10^3/uL (130-400); RED BLOOD COUNT 3.66 x10^6/uL (3.82-5.3); RED CELL DISTRIBUTION WIDTH 17.4 % (9.6-15.2)
[2020-08-03 15:15] LABS: INTERNATIONAL NORMALIZED RATIO 1.14 (0.93-1.1); PROTHROMBIN TIME 11.8 Seconds (9.6-11.5)
[2020-08-03 15:16] LABS: ALANINE AMINOTRANSFERASE 15 U/L (12-78); ALBUMIN 2.8 g/dL (3.4-5.0); ANION GAP 6 mmol/L (5-15); CALCIUM 8.4 mg/dL (8.5-10.1); CHLORIDE 104 mmol/L (98-107); CREATININE 1.25 mg/dL (0.55-1.02)
[2020-08-03 15:19] LABS: ALKALINE PHOSPHATASE 51 U/L (45-117); BILIRUBIN,TOTAL 0.6 mg/dL (0.2-1.0); TOTAL PROTEIN 5.2 g/dL (6.4-8.2)
== END 2020-08-03 17:57 | disposition home or self-care (01) ==
LOC: ED 14:39
DX: S80.12XA Contusion of left lower leg, initial encounter (principal); M66.0 Rupture of popliteal cyst; I11.0 Hypertensive heart disease with heart failure; I50.9 Heart failure, unspecified; E11.9 Type 2 diabetes mellitus without complications; I25.2 Old myocardial infarction; I48.91 Unspecified atrial fibrillation; E03.9 Hypothyroidism, unspecified; E78.5 Hyperlipidemia, unspecified; Z86.73 Personal history of transient ischemic attack (TIA), and cerebral infarction without residual deficits; Z90.49 Acquired absence of other specified parts of digestive tract; Z79.01 Long term (current) use of anticoagulants; X58.XXXA Exposure to other specified factors, initial encounter; Y93.89 Activity, other specified; Y92.89 Other specified places as the place of occurrence of the external cause; Y99.8 Other external cause status
CPT/HCPCS: 36415; 80053; 85025; 85610; 85730; 99285

== ENCOUNTER 2020-10-05 12:29 | Emergency (ER) | payer MEDICARE ==
[~2020-10-05] VITALS: Ht 165.1 cm; Wt 74.5 kg
[2020-10-05 13:16] LABS: BASOPHILS % (AUTO) 0 % (0-1); EOSINOPHILS % (AUTO) 0 % (1-7); LYMPHOCYTES % (AUTO) 10 % (22-44); MEAN CORPUSCULAR HEMOGLOBIN 28.5 pg (27.0-34.8); MEAN CORPUSCULAR HGB CONC 32.3 g/dL (32.4-35.8); MEAN PLATELET VOLUME 9.4 fL (7.4-10.4); MONOCYTES % (AUTO) 6 % (2-9); NEUTROPHILS % (AUTO) 84 % (42-75); PLATELET COUNT 279 x10^3/uL (130-400); RED BLOOD COUNT 4.39 x10^6/uL (3.82-5.3); RED CELL DISTRIBUTION WIDTH 18.1 % (9.6-15.2)
[2020-10-05 13:25] LABS: MD NO
[2020-10-05 13:28] LABS: INTERNATIONAL NORMALIZED RATIO 1.2 (0.93-1.1); PROTHROMBIN TIME 12.7 Seconds (9.6-11.5)
[2020-10-05 13:29] LABS: ALANINE AMINOTRANSFERASE 17 U/L (12-78); ALBUMIN 3.3 g/dL (3.4-5.0); ANION GAP 5 mmol/L (5-15); CALCIUM 9.1 mg/dL (8.5-10.1); CHLORIDE 104 mmol/L (98-107); CREATININE 1.32 mg/dL (0.55-1.02)
[2020-10-05 13:31] LABS: ALKALINE PHOSPHATASE 62 U/L (45-117); BILIRUBIN,TOTAL 0.6 mg/dL (0.2-1.0)
[2020-10-05 14:22] VITALS: BP 176/86
--- NOTE | 2020-10-05 14:32 | NUR ---
Break RN- report from Mary HASSAN
--- NOTE | 2020-10-05 15:13 | NUR ---
Patient given discharge instructions and they have confirmed that they understand the instructions. Patient wheeled to discharge with .
== END 2020-10-05 15:15 | disposition home or self-care (01) ==
LOC: ED 14:40
DX: S70.12XA Contusion of left thigh, initial encounter (principal); I11.0 Hypertensive heart disease with heart failure; I50.9 Heart failure, unspecified; E05.90 Thyrotoxicosis, unspecified without thyrotoxic crisis or storm; I25.2 Old myocardial infarction; I48.91 Unspecified atrial fibrillation; Z86.39 Personal history of other endocrine, nutritional and metabolic disease; Z87.891 Personal history of nicotine dependence; Z86.73 Personal history of transient ischemic attack (TIA), and cerebral infarction without residual deficits; X58.XXXA Exposure to other specified factors, initial encounter; Y93.89 Activity, other specified; Y92.89 Other specified places as the place of occurrence of the external cause; Y99.8 Other external cause status
CPT/HCPCS: 36415; 80053; 85025; 85610; 85730; 99284

== ENCOUNTER 2020-12-11 10:38 | Emergency (ER) | payer MEDICARE ==
[~2020-12-11] VITALS: Ht 162.6 cm; Wt 75.5 kg
--- NOTE | 2020-12-11 11:09 | NUR ---
PT HERE WITH STATED C/O "I FEEL LIKE MY HEART IS NOT BEATING ENOUGH", +SOB AND FATIGUE X2 DAYS. PLACED CARDIAC AND VITALS MONITORS, FALL PRECAUTIONS IN PLACE, CALL LIGHT WITHIN REACH.
[2020-12-11 12:21] LABS: BASOPHILS % (AUTO) 1 % (0-1); EOSINOPHILS % (AUTO) 4 % (1-7); LYMPHOCYTES % (AUTO) 12 % (22-44); MEAN CORPUSCULAR HEMOGLOBIN 28.7 pg (27.0-34.8); MEAN CORPUSCULAR HGB CONC 33.6 g/dL (32.4-35.8); MEAN PLATELET VOLUME 9.2 fL (7.4-10.4); MONOCYTES % (AUTO) 8 % (2-9); NEUTROPHILS % (AUTO) 76 % (42-75); PLATELET COUNT 251 x10^3/uL (130-400); RED BLOOD COUNT 4.62 x10^6/uL (3.82-5.3); RED CELL DISTRIBUTION WIDTH 15.9 % (9.6-15.2)
[2020-12-11 12:22] LABS: MD NO
[2020-12-11 12:32] LABS: ALBUMIN 3.1 g/dL (3.4-5.0); ANION GAP 4 mmol/L (5-15); CHLORIDE 103 mmol/L (98-107)
[2020-12-11 12:38] LABS: ALANINE AMINOTRANSFERASE 25 U/L (12-78); ALKALINE PHOSPHATASE 87 U/L (45-117); BILIRUBIN,TOTAL 0.9 mg/dL (0.2-1.0); CALCIUM 8.5 mg/dL (8.5-10.1); CREATININE 1.04 mg/dL (0.55-1.02); TOTAL PROTEIN 5.8 g/dL (6.4-8.2)
[2020-12-11 12:53] LABS: MICROSCOPIC AUTO
[2020-12-11 13:36] VITALS: BP 167/92
[2020-12-11] MEDS ORDERED: CEFTRIAXONE 1,000 MG ONE (13:56)
[2020-12-11] MEDS ORDERED: CEFTRIAXONE 1,000 MG IM ONE (14:00)
--- NOTE | 2020-12-11 14:02 | NUR ---
MEDICATED PER MAR.
== END 2020-12-11 14:29 | disposition home or self-care (01) ==
LOC: ED 13:29
DX: I48.91 Unspecified atrial fibrillation (principal); N30.00 Acute cystitis without hematuria; I11.0 Hypertensive heart disease with heart failure; I50.9 Heart failure, unspecified; E11.9 Type 2 diabetes mellitus without complications; I25.2 Old myocardial infarction; Z86.73 Personal history of transient ischemic attack (TIA), and cerebral infarction without residual deficits
CPT/HCPCS: 36415; 71045; 80053; 81001; 83880; 85025; 87077; 87086; 93005; 96372; 99285; J0696; 87186

== ENCOUNTER → 2021-02-26 | Outpatient (CLI) | payer MEDICARE ==
[~2021-02-26] MED LIST changes: -LISI40TA PO; +LISI40TA9 PO; +REGADENOSON 0.4 MG/5 ML SYRINGE ONE
== END | disposition home or self-care (01) ==
LOC: CFH 12:35
PROVIDERS: ATTEND Internal Medicine Cardiovascular Disease
DX: Z01.810 Encounter for preprocedural cardiovascular examination (principal); I48.91 Unspecified atrial fibrillation
CPT/HCPCS: 78452; 93017; A9502; J2785

== ENCOUNTER → 2021-03-07 | Outpatient (CLI) | payer MEDICARE ==
[~2021-03-07] MED LIST changes: +OMNIPAQUE 350 MG/ML, 100ML BOTTLE ONE; -REGADENOSON 0.4 MG/5 ML SYRINGE ONE
== END | disposition home or self-care (01) ==
LOC: CFH 11:51
PROVIDERS: ATTEND Family Medicine
DX: N28.89 Other specified disorders of kidney and ureter (principal); K76.0 Fatty (change of) liver, not elsewhere classified; N28.1 Cyst of kidney, acquired; J90 Pleural effusion, not elsewhere classified; Z90.49 Acquired absence of other specified parts of digestive tract
CPT/HCPCS: 74177; 82565; Q9967

== ENCOUNTER → 2021-06-07 | Day surgery (SDC) | payer MEDICARE ==
[~2021-06-07] VITALS: Ht 162.6 cm; Wt 73.6 kg
[~2021-06-07] MED LIST changes: +BUSP5TAB2 PO; +CHLORHEXIDINE 15 ML UDC PO ONE; +FENTANYL PF 250 MCG/5ML ONE; +FERR324T5 PO; +LACTATED RINGERS 1,000 ML IV SCH; +LANTUS INJ; +LEVO25TA4 PO; -OMNIPAQUE 350 MG/ML, 100ML BOTTLE ONE; +PLEASE ENTER HEIGHT AND WEIGHT MC SCH; +VANCOMYCIN 1,800 MG in SODIUM CHLORIDE 0.9% 250 ML IV ONE; +VANCOMYCIN PER PHARMACY MC STA
[2021-06-07 13:04] VITALS: BP 146/82
[2021-06-07 13:07] LABS: CALCIUM 9.5 mg/dL (8.5-10.1)
[2021-06-07 13:17] LABS: ANION GAP 2 mmol/L (5-15); CHLORIDE 107 mmol/L (98-107)
[2021-06-07 13:37] VITALS: BP 146/82
== END | disposition home or self-care (01) ==
LOC: OUT 12:05
PROVIDERS: ATTEND Orthopaedic Surgery Adult Reconstructive Orthopaedic Surgery
DX: M16.12 Unilateral primary osteoarthritis, left hip (principal); Z53.8 Procedure and treatment not carried out for other reasons; Z79.01 Long term (current) use of anticoagulants; Z79.899 Other long term (current) drug therapy
CPT/HCPCS: 36415; 80048; 82962; 86850; 86900; 93005; J3010